=== PATIENT | female | born 1950 | race Caucasian/White ===

== ENCOUNTER → 2019-07-29 14:12 | Outpatient (CLI) | payer MEDICARE, OTHER, SELFPAY | PROVIDERS: Visit Provider Family Medicine | DX: S01.00XA Unspecified open wound of scalp, initial encounter (principal); T81.31XA Disruption of external operation (surgical) wound, not elsewhere classified, initial encounter; L08.9 Local infection of the skin and subcutaneous tissue, unspecified | CPT/HCPCS: 11042; 87070; 87075; 87077; 87147; 87186; 87205; 99203; 99213 ==

== ENCOUNTER 2019-08-01 12:41 | Emergency (ER) | payer MEDICARE, OTHER, SELFPAY ==
[2019-08-01 12:56] VITALS: BP 189/85; PULSE 72; RESP 16; TEMP 36.9; O2SAT 100; BMI 35.7
--- NOTE | 2019-08-01 12:57 | ED_ITS ---
HPI - Wound/Laceration <NI Meyer - Last Filed: 08/01/19 16:45> General Chief Complaint: Wound/Laceration Stated Complaint: Wound on head, WC bandaged, but not working Time Seen by Provider: 08/01/19 12:45 Source: patient Mode of arrival: Ambulatory Limitations: no limitations History of Present Illness HPI narrative: The patient is a 69-year-old female nonsmoker presents with a chief complaint of a wound on her head. She states that she had a Pilar cyst removed [address] Murray. She states that 2 weeks ago it became infected and she has been seeing wound care for dressing. She states that she saw him 3 days ago. Since her dressing changed 3 days ago she has noticed a swelling is getting worse or and that her dressings ?goofing out.She states she is on cephalexin as an antibiotic. She denies any fevers nausea vomiting or diarrhea. She is concerned that the dressing will ?burst and it will ?make a mess. Related Data Allergies Allergy/AdvReac Type Severity Reaction Status Date / Time epinephrine AdvReac Verified 08/01/19 12:56 Review of Systems <NI Meyer - Last Filed: 08/01/19 16:45> Review of Systems Narrative: GENERAL: Denies chills, fatigue, malaise, fever, sweats. HEENT: Denies sinus pain, ear pain, sore throat, difficulty swallowing, dizziness. RESPIRATORY: Denies dyspnea, cough, wheezing, hemoptysis, sputum. CARDIOVASCULAR: Denies chest pain, palpitations, orthopnea, edema, GASTROINTESTINAL: Denies nausea, vomiting, abdominal pain, diarrhea, constipation, melena. : Denies dysuria, frequency, incontinence, hematuria, urinary retention. MUSCULOSKELETAL: denies weakness, joint pain, or bony pain SKIN: See HPI NEUROLOGIC: Denies weakness, headache, numbness, change in speech, confusion, seizures, incoordination. PSYCHIATRIC: No concerning psychosocial issues. 12 point review of systems is negative except for those stated above Patient History <NI Meyer - Last Filed: 08/01/19 16:45> Social History Smoking Status: Never smoker Exam <NI Meyer - Last Filed: 08/01/19 16:45> Narrative Exam Narrative: GENERAL: This is a well-nourished, well-developed patient, humble ears anxious HEAD: Atraumatic. Normocephalic. No temporal or scalp tenderness. EYES: Pupils equal round and reactive. Extraocular motions intact. No scleral icterus. No injection or drainage. ENT: Nose without bleeding, purulent drainage or septal hematoma. Throat without erythema, tonsillar hypertrophy or exudate. Uvula midline. Airway patent. NECK: Trachea midline. No JVD or lymphadenopathy. Supple, nontender, no meningeal signs. CARDIOVASCULAR: Regular rate and rhythm RESPIRATORY: No cough. No increased respiratory effort. No accessory muscle use. EXTREMITIES: No clubbing, cyanosis, or edema. No joint tenderness, effusion, or edema noted. BACK: Nontender without deformity or crepitance. No flank tenderness. NEURO: AOx3. SKIN: A DuoDerm dressing on scalp is clean dry and intact. No drainage noted. No spreading erythema around dressing. No drainage around dressing. No palpable warmth around dressing. Initial Vital Signs Initial Vital Signs: Vital Signs Temperature 98.4 F 08/01/19 12:56 Pulse Rate 72 08/01/19 12:56 Respiratory Rate 16 08/01/19 12:56 Blood Pressure 189/85 H 08/01/19 12:56 Pulse Oximetry 100 08/01/19 12:56 <Louie Rocha DO - Last Filed: 08/02/19 07:40> Initial Vital Signs Initial Vital Signs: Vital Signs Temperature 98.4 F 08/01/19 12:56 Pulse Rate 72 08/01/19 12:56 Respiratory Rate 16 08/01/19 12:56 Blood Pressure 189/85 H 08/01/19 12:56 Pulse Oximetry 100 08/01/19 12:56 Course <NI Meyer - Last Filed: 08/01/19 16:45> Vital Signs Vital signs: Vital Signs - 8 hr 08/01/19 12:56 08/01/19 13:37 Temperature 98.4 F Pulse Rate 72 71 Respiratory Rate 16 18 Blood Pressure 189/85 H Blood Pressure [Left Arm] 165/79 H Pulse Oximetry 100 99 <Louie Rocha DO - Last Filed: 08/02/19 07:40> Vital Signs Vital signs: Vital Signs - 8 hr 08/01/19 12:56 08/01/19 13:37 Temperature 98.4 F Pulse Rate 72 71 Respiratory Rate 16 18 Blood Pressure 189/85 H Blood Pressure [Left Arm] 165/79 H Pulse Oximetry 100 99 [facility] - Wound/Laceration <Brittni MacdonaldCOLTEN keys-BC - Last Filed: 08/01/19 16:45> [facility] Narrative Medical decision making narrative: The patient is a 69-year-old female who presents with a chief complaint of being concerned about a wound care dressing on her head. She has no signs of spreading infection around her dressing no fever, normal vital signs and is hemodynamically stable. The dressing is clean dry and intact. She states that she has an appointment with wound care on Saturday at this point. Rather than take down her dressing and increased chance of infection, especially given that her wound is down to the bone, we elected to reinforce her dressing with DuoDerm. Reassurance was provided. Patient has no questions or concerns upon discharge. I discussed at length the importance of follow-up with wound care. The patient has no questions or concerns upon discharge and states understanding of return precautions as well as follow-up care. Discharge Plan Departure Patient Disposition: Home Clinical Impression: Encounter for wound re-check Discharge Date/Time: 08/01/19 14:01 Instructions: DI for Wound Infection Activity Restrictions/Additional Instructions: Your wound looks good today. Please monitor for spreading redness fever etc Please follow up with wound care on Saturday as you have scheduled. Please come back to the emergency department for any acute concerns. Referrals: [facility] [Outside]
[2019-08-01 13:37] VITALS: BP 165/79; PULSE 71; RESP 18; O2SAT 99
== END 2019-08-01 14:01 | disposition home or self-care (01) ==
PROVIDERS: Emergency Provider Nurse Practitioner Family
DX: Z48.00 Encounter for change or removal of nonsurgical wound dressing (principal)
CPT/HCPCS: 99282

== ENCOUNTER → 2019-08-03 13:04 | Outpatient (CLI) | payer MEDICARE, OTHER, SELFPAY | PROVIDERS: Visit Provider Family Medicine | DX: S01.00XA Unspecified open wound of scalp, initial encounter (principal); T81.31XA Disruption of external operation (surgical) wound, not elsewhere classified, initial encounter; B95.61 Methicillin susceptible Staphylococcus aureus infection as the cause of diseases classified elsewhere | CPT/HCPCS: 97597 ==

== ENCOUNTER → 2019-08-11 13:01 | Outpatient (CLI) | payer MEDICARE, OTHER, SELFPAY | PROVIDERS: Visit Provider Family Medicine | DX: S01.00XA Unspecified open wound of scalp, initial encounter (principal); T81.31XA Disruption of external operation (surgical) wound, not elsewhere classified, initial encounter; B95.61 Methicillin susceptible Staphylococcus aureus infection as the cause of diseases classified elsewhere | CPT/HCPCS: 97597 ==

== ENCOUNTER → 2019-08-17 14:14 | Outpatient (CLI) | payer MEDICARE, OTHER, SELFPAY | PROVIDERS: Visit Provider Family Medicine | DX: S01.00XD Unspecified open wound of scalp, subsequent encounter (principal); T81.31XD Disruption of external operation (surgical) wound, not elsewhere classified, subsequent encounter | CPT/HCPCS: 99212; 99214 ==

== ENCOUNTER → 2019-08-17 15:56 | Outpatient (CLI) | payer MEDICARE, OTHER, SELFPAY ==
[2019-08-17 16:32] LABS: RBC Urine None Seen (0-5/HPF)
[2019-08-17 18:09] LABS: Add Manual Diff / Slide Review NO; Basophils Absolute Auto 0 /uL (0-100); Basophils Percent Auto 0.6 % (0-2); Eosinophils Absolute Auto 0 /uL (0-450); Eosinophils Percent Auto 0.2 % (2-4); Hematocrit 42.2 % (36-46); Lymphocytes Absolute Auto 900 /uL (1100-4500); Lymphocytes Percent Auto 25.9 % (25-40); Mean Corpuscular HGB Conc 33.1 % (30-36); Mean Corpuscular Hemoglobin 29.3 PG (26-34); Mean Corpuscular Volume 88.5 fL (80-100); Monocytes Absolute Auto 600 /uL (0-900); Monocytes Percent Auto 15.4 % (3-14); Neutrophils Absolute Auto 2100 /uL (1500-7000); Neutrophils Percent Auto 57.9 % (50-75); Platelet Count 184 X10^3/uL (150-400); Red Blood Cell Count 4.77 X10^6/uL (4.0-5.2); Red Cell Distribution Width 13.3 % (11.6-14.8); White Blood Cell Count 3.7 X10^3/uL (4.5-11.0)
[2019-08-17 18:38] LABS: Amorphous Sediment Urine 1+; Bacteria Urine Few (2-10); Mucus Urine 3+ (Negative); Renal Epithelial Cells Urine 1-5/HPF (0-1/HPF); Squamous Epithelial Cell Urine 1-5 /HPF (0-5/HPF); WBC Urine 10-30/HPF (0-5/HPF)
[2019-08-17 18:39] LABS: Culture Indicated Urine Specimen Cultured
[2019-08-17 18:40] LABS: Erythrocyte Sedimentation Rate 15 MM/HR (0-20)
[2019-08-17 18:43] LABS: Alanine Aminotransferase 48 IU/L (<35); Albumin 4.4 g/dL (3.5-5.0); Albumin Globulin Ratio 1.3 (1.0-2.8); Alkaline Phosphatase 102 U/L (38-126); Aspartate Aminotransferase 64 IU/L (14-36); BUN Creatinine Ratio 22.9 (6-22); Bilirubin Total 1.1 mg/dL (0.2-1.3); Blood Urea Nitrogen 16 mg/dL (7-17); C-Reactive Protein Quant 6.6 mg/dL (<1.0); Calcium 9.4 mg/dL (8.4-10.2); Carbon Dioxide 23 mmol/L (22-32); Chloride 100 mmol/L (98-107); Estimated Glomerular Filt Rate > 60.0 mL/min (>60); Globulin 3.4 g/dL (1.7-4.1); Glucose 266 mg/dL (80-110); HEMOLYSIS < 15 (0-50); Potassium 4.1 mmol/L (3.4-5.1); Sodium 136 mmol/L (137-145); Total Protein 7.8 g/dL (6.3-8.2)
[2019-08-17 19:10] LABS: INR 1.1 (0.9-1.3); Prothrombin Time 13.1 SECONDS (10.1-12.7)
[2019-08-17 19:13] LABS: PTT Partial Thromboplastin Tim 36 SECONDS (26.4-36.2)
[2019-08-17 19:14] LABS: Hepatitis B Surface Antigen NEGATIVE s/c (NEGATIVE)
[2019-08-17 19:32] LABS: Hep C Virus Ab w/Reflex Quant NEGATIVE s/c (NEGATIVE)
[2019-08-20 19:12] LABS: RPR Screen Nonreactive (Nonreactive)
[2019-08-21 18:25] LABS: Complement C3 177 mg/dL (83-193)
[2019-08-22 14:47] LABS: Complement Total CH50 > 60 U/mL (31-60)
== END ==
PROVIDERS: Visit Provider Family Medicine
DX: R21 Rash and other nonspecific skin eruption (principal); D69.2 Other nonthrombocytopenic purpura; M65.841 Other synovitis and tenosynovitis, right hand; M65.842 Other synovitis and tenosynovitis, left hand
CPT/HCPCS: 36415; 80053; 81015; 82595; 85025; 85610; 85651; 85730; 86021; 86038; 86140; 86160; 86162; 86592; 86803; 87086; 87340

== ENCOUNTER → 2019-08-21 13:06 | Outpatient (CLI) | payer MEDICARE, OTHER, SELFPAY | PROVIDERS: Visit Provider Family Medicine | DX: E11.628 Type 2 diabetes mellitus with other skin complications (principal); S01.00XD Unspecified open wound of scalp, subsequent encounter; T81.31XD Disruption of external operation (surgical) wound, not elsewhere classified, subsequent encounter; D69.2 Other nonthrombocytopenic purpura; E11.65 Type 2 diabetes mellitus with hyperglycemia | CPT/HCPCS: 99212; 99213 ==

== ENCOUNTER → 2019-08-27 13:35 | Outpatient (CLI) | payer MEDICARE, OTHER, SELFPAY | PROVIDERS: Visit Provider Family Medicine | DX: E11.628 Type 2 diabetes mellitus with other skin complications (principal); S01.00XA Unspecified open wound of scalp, initial encounter; T81.31XA Disruption of external operation (surgical) wound, not elsewhere classified, initial encounter; D69.2 Other nonthrombocytopenic purpura; E11.65 Type 2 diabetes mellitus with hyperglycemia | CPT/HCPCS: 17250 ==

== ENCOUNTER → 2019-09-03 14:36 | Outpatient (CLI) | payer MEDICARE, OTHER, SELFPAY | PROVIDERS: Visit Provider Family Medicine | DX: S01.00XA Unspecified open wound of scalp, initial encounter (principal); T81.31XA Disruption of external operation (surgical) wound, not elsewhere classified, initial encounter; D69.2 Other nonthrombocytopenic purpura; E11.65 Type 2 diabetes mellitus with hyperglycemia | CPT/HCPCS: 11042 ==

== ENCOUNTER → 2019-09-11 11:29 | Outpatient (CLI) | payer MEDICARE, OTHER, SELFPAY | PROVIDERS: Visit Provider Family Medicine | DX: S01.00XA Unspecified open wound of scalp, initial encounter (principal); T81.31XA Disruption of external operation (surgical) wound, not elsewhere classified, initial encounter; E11.65 Type 2 diabetes mellitus with hyperglycemia | CPT/HCPCS: 99213 ==

== ENCOUNTER → 2019-09-17 15:20 | Outpatient (CLI) | payer MEDICARE, OTHER, SELFPAY | PROVIDERS: Visit Provider Family Medicine | DX: S01.00XA Unspecified open wound of scalp, initial encounter (principal); T81.31XA Disruption of external operation (surgical) wound, not elsewhere classified, initial encounter; E11.65 Type 2 diabetes mellitus with hyperglycemia | CPT/HCPCS: 99212; 99213 ==

== ENCOUNTER → 2019-09-24 15:31 | Outpatient (CLI) | payer MEDICARE, OTHER, SELFPAY | PROVIDERS: Visit Provider Family Medicine | DX: L08.9 Local infection of the skin and subcutaneous tissue, unspecified (principal); S01.00XA Unspecified open wound of scalp, initial encounter; T81.31XA Disruption of external operation (surgical) wound, not elsewhere classified, initial encounter; D69.2 Other nonthrombocytopenic purpura; E11.65 Type 2 diabetes mellitus with hyperglycemia | CPT/HCPCS: 87070; 87075; 87077; 87147; 87186; 87205; 97597; 99212 ==

== ENCOUNTER → 2019-09-29 11:30 | Outpatient (CLI) | payer MEDICARE, OTHER, SELFPAY | PROVIDERS: Visit Provider Family Medicine | DX: S01.00XA Unspecified open wound of scalp, initial encounter (principal) | CPT/HCPCS: 99213 ==

== ENCOUNTER → 2019-10-06 15:25 | Outpatient (CLI) | payer MEDICARE, OTHER, SELFPAY | PROVIDERS: Visit Provider Family Medicine | DX: S01.00XA Unspecified open wound of scalp, initial encounter (principal); T81.31XA Disruption of external operation (surgical) wound, not elsewhere classified, initial encounter; D69.2 Other nonthrombocytopenic purpura; E11.65 Type 2 diabetes mellitus with hyperglycemia; L08.9 Local infection of the skin and subcutaneous tissue, unspecified; B95.61 Methicillin susceptible Staphylococcus aureus infection as the cause of diseases classified elsewhere | CPT/HCPCS: 17250; 99214 ==

== ENCOUNTER → 2019-10-13 14:26 | Outpatient (CLI) | payer MEDICARE, OTHER, SELFPAY | PROVIDERS: Visit Provider Family Medicine | DX: E11.628 Type 2 diabetes mellitus with other skin complications (principal); T81.31XA Disruption of external operation (surgical) wound, not elsewhere classified, initial encounter; S01.00XA Unspecified open wound of scalp, initial encounter | CPT/HCPCS: 97597 ==

== ENCOUNTER → 2019-10-16 11:43 | Outpatient (CLI) | payer MEDICARE, OTHER, SELFPAY | PROVIDERS: Referring Provider Otolaryngology; Visit Provider Family Medicine | DX: S01.00XA Unspecified open wound of scalp, initial encounter (principal) | CPT/HCPCS: 99213 ==

== ENCOUNTER → 2019-10-20 14:22 | Outpatient (CLI) | payer MEDICARE, OTHER, SELFPAY | PROVIDERS: Referring Provider Otolaryngology; Visit Provider Family Medicine | DX: S01.00XA Unspecified open wound of scalp, initial encounter (principal); T81.31XA Disruption of external operation (surgical) wound, not elsewhere classified, initial encounter; E11.65 Type 2 diabetes mellitus with hyperglycemia; E11.628 Type 2 diabetes mellitus with other skin complications | CPT/HCPCS: 11042; 87070; 87075; 87077; 87147; 87186; 87205 ==

== ENCOUNTER → 2019-10-23 11:36 | Outpatient (CLI) | payer MEDICARE, OTHER, SELFPAY | PROVIDERS: Referring Provider Otolaryngology; Visit Provider Family Medicine | DX: S01.00XA Unspecified open wound of scalp, initial encounter (principal) | CPT/HCPCS: 99213 ==

== ENCOUNTER → 2019-10-27 13:01 | Outpatient (CLI) | payer MEDICARE, OTHER, SELFPAY | PROVIDERS: Referring Provider Otolaryngology; Visit Provider Family Medicine | DX: E11.628 Type 2 diabetes mellitus with other skin complications (principal); T81.31XA Disruption of external operation (surgical) wound, not elsewhere classified, initial encounter; S01.00XA Unspecified open wound of scalp, initial encounter; E11.65 Type 2 diabetes mellitus with hyperglycemia; L08.9 Local infection of the skin and subcutaneous tissue, unspecified; B95.61 Methicillin susceptible Staphylococcus aureus infection as the cause of diseases classified elsewhere; B95.7 Other staphylococcus as the cause of diseases classified elsewhere | CPT/HCPCS: 97597; 99214 ==

== ENCOUNTER → 2019-10-30 12:16 | Outpatient (CLI) | payer MEDICARE, OTHER, SELFPAY | PROVIDERS: PCP Otolaryngology; Referring Provider Otolaryngology; Visit Provider Family Medicine | DX: S01.00XA Unspecified open wound of scalp, initial encounter (principal) | CPT/HCPCS: 99212 ==

== ENCOUNTER → 2019-11-03 13:42 | Outpatient (CLI) | payer MEDICARE, OTHER, SELFPAY | PROVIDERS: Referring Provider Otolaryngology; Visit Provider Family Medicine | DX: E11.628 Type 2 diabetes mellitus with other skin complications (principal); S01.00XA Unspecified open wound of scalp, initial encounter; T81.31XA Disruption of external operation (surgical) wound, not elsewhere classified, initial encounter | CPT/HCPCS: 99213 ==

== ENCOUNTER → 2019-11-10 14:24 | Outpatient (CLI) | payer MEDICARE, OTHER, SELFPAY | PROVIDERS: Referring Provider Otolaryngology; Visit Provider Family Medicine | DX: E11.65 Type 2 diabetes mellitus with hyperglycemia (principal); L29.9 Pruritus, unspecified | CPT/HCPCS: 99212; 99213 ==

== ENCOUNTER → 2019-11-16 08:48 | Outpatient (CLI) | payer MEDICARE, OTHER, SELFPAY | PROVIDERS: Referring Provider Otolaryngology; Visit Provider Family Medicine | DX: S01.00XD Unspecified open wound of scalp, subsequent encounter (principal) | CPT/HCPCS: 99211 ==

== ENCOUNTER 2021-05-09 15:17 | Emergency (ER) | payer MEDICARE, OTHER, SELFPAY ==
[2021-05-09 15:23] VITALS: BP 204/87; PULSE 85; RESP 16; TEMP 36.4; O2SAT 97; BMI 35.6
--- NOTE | 2021-05-09 18:05 | DI.CT.S_ITS ---
PROCEDURE: CT HEAD/BRAIN WO CON INDICATIONS: fall TECHNIQUE: Noncontrast 4.5 mm thick angled axial sections acquired from the foramen magnum to the vertex, with coronal and sagittal reformats. For radiation dose reduction, the following was used: automated exposure control, adjustment of mA and/or kV according to patient size. COMPARISON: None. FINDINGS: Image quality: Excellent. CSF spaces: Basal cisterns are patent. No extra-axial fluid collections. The ventricles are symmetric in size and shape. Brain: No intracranial bleeds or masses. There is cerebral volume loss for age, with resultant ventricular and sulcal prominence. There are periventricular and deep white matter chronic small vessel ischemic changes. There is intracranial internal carotid artery atherosclerosis. Skull and face: Calvarium and visualized facial bones appear intact, without suspicious lesions. Bilateral intraocular lens replacements noted. Left occipital scalp hematoma noted Sinuses: Visualized sinuses and mastoids are clear. IMPRESSION: Left occipital scalp hematoma without skull fracture or intracranial hemorrhage. Atrophy and chronic ischemic change Approved by: Michael Flores M.D. on 05/09/2021 at 17:45
--- NOTE | 2021-05-09 18:06 | DI.CT.S_ITS ---
PROCEDURE: CT CERVICAL SPINE WO CON INDICATIONS: fall TECHNIQUE: Noncontrast 3 mm thick sections acquired from the skull base to the T4 level. Sagittal and coronal reformats were then constructed. For radiation dose reduction, the following was used: automated exposure control, adjustment of mA and/or kV according to patient size. COMPARISON: None. FINDINGS: Image quality: Excellent. Bones: No fractures or dislocations. Visualized superior ribs are intact. Mild degenerative disc disease in the mid cervical spine results in mild central stenosis. Soft tissues: Prevertebral soft tissues are normal in thickness. No paravertebral hematomas. No apical pneumothoraces. IMPRESSION: No evidence of fracture or traumatic malalignment. Mild degenerative disc disease and arthropathy without significant central stenosis Approved by: Michael Flores M.D. on 05/09/2021 at 17:53
--- NOTE | 2021-05-09 18:13 | ED.HEATRA ---
HPI - Head Injury General Chief complaint: Head Injury Stated complaint: fell and hit head, bleeding Time Seen by Provider: 05/09/21 17:27 Source: patient Mode of arrival: Ambulatory Limitations: no limitations History of Present Illness HPI Narrative: Patient is a 71-year-old female who presents after a ground level fall. She said that she was walking down hill when she slipped and fell hitting the back of her head. She is not on any anti-platelet or anticoagulation medication. She initially felt nauseous but did not lose consciousness. She is not having any vomiting. Obvious head wound posteriorly. She has no neck pain. She suffers from severe anxiety and wearing a mask indoors gives her great anxiety. Nursing staff and I have arranged for her to be in her car after testing has been done. Related Data Allergies Allergy/AdvReac Type Severity Reaction Status Date / Time epinephrine AdvReac Verified 08/01/19 12:56 Review of Systems Review of Systems Narrative: GENERAL: Denies chills, fatigue, malaise, fever, sweats, travel HEENT: Denies sinus pain, ear pain, sore throat, difficulty swallowing, neck pain RESPIRATORY: Denies dyspnea, cough, wheezing, hemoptysis, sputum. CARDIOVASCULAR: Denies chest pain, palpitations, orthopnea, edema GASTROINTESTINAL: Denies nausea, vomiting, abdominal pain, diarrhea, constipation, melena. : Denies dysuria, frequency, incontinence, hematuria, urinary retention, flank pain. MUSCULOSKELETAL: Denies weakness, joint pain, or bony pain SKIN: See HPI NEUROLOGIC: See HPI PSYCHIATRIC: No concerning psychosocial issues. 12 point review of systems is negative except for those stated above and HPI Patient History Social History Smoking Status: Never smoker Smoking Status: Never smoker alcohol intake frequency: 0-2 drinks per day Alcohol type: beer, wine and hard liquor Substance Use Type: does not use Exam Initial Vital Signs Initial Vital Signs: Vital Signs Temperature 97.5 F L 05/09/21 15:23 Pulse Rate 85 05/09/21 15:23 Respiratory Rate 16 05/09/21 15:23 Blood Pressure 204/87 H 05/09/21 15:23 Pulse Oximetry 97 05/09/21 15:23 GENERAL: Alert slightly anxious 71-year-old pain HEENT: Head atraumatic, head laceration 4cm left posterior no crepitations no depression,EOMI, pupils reactive, face symmetric, moist mucous membranes NECK: No vertebral tenderness or step-offs full flexion extension and rotation CARDIOVASCULAR: Regular rate and rhythm without murmurs, rubs or gallops. RESPIRATORY: Breath sounds equal bilaterally, no wheezes rales or rhonchi. ABDOMEN: Soft, nontender. Normoactive bowel sounds all 4 quadrants. No guarding or rebound. EXTREMITIES: Normal range of motion, no clubbing or edema. Neurovascularly intact NEUROLOGICAL: Alert and oriented x4.Normal gait and speech. Cranial nerves II through XII grossly intact. Child Care Team Lead strength equal bilaterally SKIN: 4 cm laceration left posterior scalp Procedures Laceration Repair Laceration 1: Site: scalp Side (If applicable): left Size (cm): 4 Description: linear Depth: simple, single layer Pre-repair: wound explored and deep structures intact Skin layer closed with: calli Number of sutures: 4 Course Orders Ordered: ED Orders 05/09/21 18:05 CT head/brain wo con Stat 05/09/21 18:06 CT cervical spine wo con Stat Vital Signs Vital signs: Vital Signs - 8 hr 05/09/21 19:53 Pulse Rate 88 Respiratory Rate 18 Blood Pressure 186/80 H Pulse Oximetry 98 MDM - Head Injury Imaging Data CT scan - head: Radiologist's Impression: Left occipital scalp hematoma without skull fracture or intracranial hemorrhage. Atrophy and chronic ischemic change CT - cervical spine: Radiologist's Impression: No evidence of fracture or traumatic malalignment. Mild degenerative disc disease and arthropathy without significant central stenosis MDM Narrative Medical decision making narrative: Patient unable to wear Mask due to severe anxiety anxiety medication was offered to her however she opted not to take it. After patient's CT she went back to her car and waited. When CT results returned patient return to the emergency department where I gave her results. Which were negative. Patient suffered a closed head injury possible mild concussion. She is given head injury instructions. I have repaired her scalp laceration. She has no focal deficits no nausea vomiting or concerning signs at this time. She also is low risk and not on any anti-platelet or anticoagulation medication Discharge Plan Departure Patient Disposition: Home Clinical Impression: Closed head injury Qualifiers: Encounter type: initial encounter Qualified Code(s): S09.90XA - Unspecified injury of head, initial encounter Laceration of scalp Qualifiers: Encounter type: initial encounter Qualified Code(s): S01.01XA - Laceration without foreign body of scalp, initial encounter Instructions: DI for Laceration Repair -- Calli, DI for Closed Head Injury Activity Restrictions/Additional Instructions: *You have been diagnosed with closed head injury, stable laceration *What to do: Please have calli removed in 5-7 days. Keep wound clean and dry with soap and water okay to shower no swimming or soaking. May experience some mild headache. Apply ice to area 20-30 minutes at a time. *Continue to take medications as directed Tylenol 650 mg every 4-6 hours if needed for [id number] pain Motrin 600 mg every 6 hours if needed for [id number] pain *Follow up with your primary care provider in 2-3 days *Return to ER if you should have persistent vomiting, weakness, redness pus or swelling or any new, worsening or concerning symptoms
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
[2021-05-09 19:53] VITALS: BP 186/80; PULSE 88; RESP 18; O2SAT 98
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
== END 2021-05-09 19:53 | disposition home or self-care (01) ==
PROVIDERS: Emergency Provider Emergency Medicine
DX: S01.01XA Laceration without foreign body of scalp, initial encounter (principal); W19.XXXA Unspecified fall, initial encounter
CPT/HCPCS: 12002; 70450; 72125; 99281; 99284